=== PATIENT | female | born 1935 | race Caucasian/White ===

== ENCOUNTER 2017-10-11 10:40 | Observation (INO) | payer OTHER ==
[2017-10-11 11:05] VITALS: BMI 22.6
--- NOTE | 2017-10-11 11:27 | PDOC ---
Attending Attestation - Resident Resident Name: Billy Rivas - ED Attending Attestation I have performed the following: I have examined & evaluated the patient, The case was reviewed & discussed with the resident, I agree w/resident's findings & plan, Exceptions are as noted - HPI HPI: 10/11/17 11:43 82y F hx of dementia, seizures, htn, hl, presents from [facility] with complaint of near syncopal episode. She was ambulating to the restroom with a family member this morning and the custodial staff, saw sh was having difficulty with baklance - fell backwards, and was alitlte less responsive than usual no visible seizures, urinary/bowel incontinence, no focal deficits noted at the time of the currenlty complaining of a mild headache that started this morning bu tis unable to provide me any further details. she denies any cp, sob, cough, leg welling currently. history is limited due to her dementia. GENERAL: The patient is awake, alert, and oriented x 1, Nontoxic - in no acute distress. HEAD: Normocephalic, atraumatic. EYES: extraocular movements intact, sclera anicteric, conjunctiva clear. ENT: Normal voice, Moist mucous membranes. NECK: Normal range of motion, supple LUNGS: Breath sounds equal, clear to auscultation bilaterally. No wheezes, no rhonchi, no rales. HEART: Regular rate and rhythm, ABDOMEN: Soft, nontender, NEUROLOGICAL: No facial assymetry, Normal speech, moving all 4 extremities spontaneeously and symemtrically PSYCH: Normal mood, normal affect. 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 There is normal sinus rhythm with a Rate of 56 T wave inversions in the anterior leads No old EKGs for comparison
[2017-10-11 11:33] LABS: BASO % 0.7 % (0-2.0); HEMATOCRIT 44.4 % (32.4-45.2); HEMOGLOBIN 14.3 GM/dL (10.7-15.3); LYMPH % 15.3 % (8-40); MCH 25.6 pg (25.7-33.7); MCHC 32.2 g/dl (32.0-36.0); MEAN CELL VOLUME 79.6 fl (80-96); MEAN PLT VOLUME 8.3 fl (7.5-11.1); MONO % 4.1 % (3.8-10.2); NEUT % 79.9 % (42.8-82.8); PLATELET COUNT 281 K/MM3 (134-434); RBC 5.58 M/mm3 (3.60-5.2); RDW 14.5 % (11.6-15.6); WHITE BLOOD COUNT 9.9 K/mm3 (4.0-10.0)
[2017-10-11] MEDS ORDERED: KETOROLAC TROMETHAMINE 30 MG/1 ML VIAL IVPUSH ONE (11:59)
[2017-10-11] MEDS ORDERED: ACETAMINOPHEN 325 MG TABLET (FP) PO ONE (12:02)
--- NOTE | 2017-10-11 12:16 | PDOC ---
History of Present Illness - General Chief Complaint: Syncope/Near Syncope Stated Complaint: SYNCOPE,HEADACHE Time Seen by Provider: 10/11/17 10:56 - History of Present Illness Initial Comments: Ms Virgen is an 82yo F serbian speaking [facility] resident at [facility] with PMHx of Dementia, Epilepsy, HTN, HLD. She was brought by EMS for possible syncopal/near-syncopal episode. Patient is a poor historian secondary to dementia. History was obtained by nurses at [facility]. Pt was admitted to [facility] 2 days ago for assistance with home care due to dementia. This AM the patient was in the bathroom and suddenly was unable to maintain postural support and started to fall backwards when the nurse caught her and broke her fall. Her eyes remained open, but she appeared to have a "staring" look on her face. After the episode, she was unable to stand up, and was seemingly more confused than baseline. She then started drooling which prompted EMS call. The patient does not remember this episode. But currently states she has a headache and blurry vision. She denies chest pain, palpitations, SOB, abd pain, back pain. She denies focal weakness. Past History - Past Medical History Allergies/Adverse Reactions: Allergies Allergy/AdvReac Type Severity Reaction Status Date / Time No Known Allergies Allergy Verified 10/11/17 10:55 Home Medications: Ambulatory Orders Atorvastatin Ca [Lipitor] 20 mg PO HS 10/11/17 Cholecalciferol (Vitamin D3) [Vitamin D3] 2 tab PO DAILY 10/11/17 Citalopram Hydrobromide [Celexa -] 10 mg PO DAILY 10/11/17 Donepezil HCl 10 mg PO HS 10/11/17 Loratadine [Claritin] 10 mg PO DAILY PRN 10/11/17 Memantine HCl [Namenda -] 10 mg PO BID 10/11/17 Pantoprazole Sodium 40 mg PO DAILY 10/11/17 Topiramate 50 mg PO DAILY 10/11/17 Verapamil HCl 80 mg PO DAILY 10/11/17 Ammonium Lactate Lotion [Lac-Hydrin 12% Lotion -] 1 applic TP DAILY 10/12/17 Azelastine 0.05% Eye Drops 1 drop OD BID 10/12/17 COPD: No Dementia: Yes (with behavioral) GI Disorders: Yes (gerd,esophagitis) HTN: Yes Hypercholesterolemia: Yes Psychiatric Problems: Yes (depression) Seizures: Yes - Suicide/Smoking/Psychosocial Hx Smoking History: Unknown if ever smoked Information on smoking cessation initiated: No Hx Alcohol Use: No Drug/Substance Use Hx: No Substance Use Type: None *Physical Exam - Vital Signs Last Vital Signs Temp Pulse Resp BP Pulse Ox 98.0 F 59 L 18 133/76 100 10/11/17 10:55 10/11/17 10:55 10/11/17 10:55 10/11/17 10:55 10/11/17 11:12 - Physical Exam Comments: GEN: Awake, alert, oriented to person, place, not oriented to time HEENT: PERRLA, EOMi, No temporal tenderness CV: S1, S2, RRR, no murmur LUNG: CTABL ABD: Soft, NT, ND, normoactive BS MSK: No edema, no erythema NEURO: CN 2-12 grossly intact MSK strength 4/5 symmetric in all extremities No sensation deficits No dysmetria or disdiadochokinesia Gait not observed ED Treatment Course - LABORATORY CBC & Chemistry Diagram: 10/12/17 06:00 10/12/17 06:00 - ADDITIONAL ORDERS Additional order review: Laboratory Results 10/11/17 11:20 Sodium Cancelled Potassium Cancelled Chloride Cancelled Carbon Dioxide Cancelled Anion Gap Cancelled BUN Cancelled Creatinine Cancelled Creat Clearance w eGFR Cancelled Random Glucose Cancelled Calcium Cancelled Total Bilirubin Cancelled AST Cancelled ALT Cancelled Alkaline Phosphatase Cancelled Creatine Kinase Cancelled Troponin I Cancelled Total Protein Cancelled Albumin Cancelled 10/11/17 11:20 RBC 5.58 H MCV 79.6 L MCHC 32.2 RDW 14.5 MPV 8.3 Neutrophils % 79.9 Lymphocytes % 15.3 Monocytes % 4.1 Eosinophils % 0.0 Basophils % 0.7 - RADIOLOGY Radiology Studies Ordered: Category Date Time Status HEAD CT WITHOUT CONTRAST [CT] Stat CT Scan 10/11/17 11:59 Ordered Medical Decision Making - Medical Decision Making 10/11/17 12:20 Ms Virgen is an 82yo F with hx of Dementia, Epilepsy, HLD who was BIBEMS from [facility] due to possible presyncopal/syncopal episode. Pt now has headache, blurry vision. DDx include neurogenic causes such as seizure (due to hx), stroke , vasovagal, intracranial bleed or mass. Cardiogenic causes include arrhythmia, atypical MT. --CBC, CMP --Troponin --EKG shows TWI in anterior leads (no comparison) --Head CT noncon --Tylenol 650mg x1 If workup is negative, likely dispo is obs. PCP at [facility] is Dr Jules Chi. 10/11/17 13:38 Labwork is WNL. Head CT shows no hemorrhage or infarct, scattered calcifications. Will call Dr Jules Chi for observation. *DC/Admit/Observation/Transfer Diagnosis at time of Disposition: Syncope Qualifiers: Syncope type: unspecified Qualified Code(s): R55 - Syncope and collapse - Referrals - Patient Instructions - Post Discharge Activity
[2017-10-11] MEDS ORDERED: ACETAMINOPHEN 325 MG TABLET (FP) ONE (12:19)
[2017-10-11 12:46] LABS: ALBUMIN 4.1 g/dl (3.4-5.0); ANION GAP 8 (8-16); BILIRUBIN,TOTAL 0.8 mg/dL (0.2-1.0); BLOOD UREA NITROGEN 25 mg/dL (7-18); CALCIUM 8.8 mg/dL (8.5-10.1); CHLORIDE 107 mmol/L (98-107); CO2 25 mmol/L (21-32); CREATININE 0.8 mg/dL (0.55-1.02); GLUCOSE,RANDOM 105 mg/dL (74-106); POTASSIUM 4.2 mmol/L (3.5-5.1); SGOT/AST 11 U/L (15-37); SGPT/ALT 21 U/L (12-78); SODIUM 140 mmol/L (136-145)
[2017-10-11 12:49] LABS: ALK PHOS 98 U/L (45-117); TOT PROT 7.3 g/dl (6.4-8.2)
--- NOTE | 2017-10-11 15:13 | EKG ---
Test Reason : Blood Pressure : / mmHG Vent. Rate : 056 BPM Atrial Rate : 056 BPM P-R Int : 148 ms QRS Dur : 086 ms QT Int : 486 ms P-R-T Axes : 030 -09 069 degrees QTc Int : 468 ms SINUS BRADYCARDIA T WAVE ABNORMALITY, CONSIDER ANTERIOR ISCHEMIA ABNORMAL ECG NO PREVIOUS ECGS AVAILABLE Confirmed by MD VIDYA, ADELITA ([id number]) on 10/11/2017 3:12:59 PM Referred By: Confirmed By:ADELITA DASILVA MD
[2017-10-11] MEDS: HEPARIN NA (PORCINE) 5,000 UNITS/ML 1ML VIAL SQ SCH (21:03)
[2017-10-12] MEDS ORDERED: LORATADINE 10 MG TABLET PO PRN (03:59)
[2017-10-12 07:33] LABS: HEMATOCRIT 43.9 % (32.4-45.2); HEMOGLOBIN 14.1 GM/dL (10.7-15.3); MCH 25.6 pg (25.7-33.7); MCHC 32.1 g/dl (32.0-36.0); MEAN CELL VOLUME 79.7 fl (80-96); MEAN PLT VOLUME 8.6 fl (7.5-11.1); PLATELET COUNT 276 K/MM3 (134-434); RBC 5.51 M/mm3 (3.60-5.2); RDW 14.5 % (11.6-15.6); WHITE BLOOD COUNT 7.7 K/mm3 (4.0-10.0)
[2017-10-12 07:56] LABS: CHOLESTEROL 223 mg/dL (50-200); HDL CHOLESTEROL 39 mg/dL (40-60); LDL CHOLESTEROL (ONLY SJRH) 133 mg/dL (5-100); TRIGLYCERIDES 255 mg/dL (35-160)
[2017-10-12 08:06] LABS: ALBUMIN 3.9 g/dl (3.4-5.0); ANION GAP 10 (8-16); CHLORIDE 107 mmol/L (98-107); CO2 25 mmol/L (21-32); GLUCOSE,RANDOM 110 mg/dL (74-106); POTASSIUM 4.1 mmol/L (3.5-5.1); SODIUM 142 mmol/L (136-145)
[2017-10-12 08:20] LABS: ALK PHOS 91 U/L (45-117); BILIRUBIN,TOTAL 0.9 mg/dL (0.2-1.0); BLOOD UREA NITROGEN 30 mg/dL (7-18); CALCIUM 8.8 mg/dL (8.5-10.1); SGOT/AST 14 U/L (15-37); SGPT/ALT 21 U/L (12-78); TOT PROT 7.1 g/dl (6.4-8.2)
[2017-10-12] MEDS ORDERED: PT OWN MED DRAWER 7, Y5N ONE (09:48)
[2017-10-12] MEDS: TOPIRAMATE 25 MG TABLET (FP) PO SCH (09:50)
[2017-10-12] MEDS: MEMANTINE HCL 10 MG TABLET (FP) PO SCH ×2 (09:50→22:10)
[2017-10-12] MEDS: PANTOPRAZOLE 40 MG TABLET (FP) PO SCH (09:50)
[2017-10-12] MEDS: CITALOPRAM HYDROBROMIDE 10 MG TABLET (FP) PO SCH (09:50)
[2017-10-12] MEDS: HEPARIN NA (PORCINE) 5,000 UNITS/ML 1ML VIAL SQ SCH ×2 (09:50→22:10)
[2017-10-12] MEDS: CHOLECALCIFEROL (VITAMIN D3) 1,000 UNIT TABLET (FP) PO SCH (09:50)
[2017-10-12] MEDS: VERAPAMIL HCL 80 MG TABLET PO SCH (09:51)
--- NOTE | 2017-10-12 11:12 | HP ---
Admitting History and Physical - Primary Care Physician PCP: Priscilla Chi - Admission History of Present Illness: 82y F hx of dementia, seizures, htn, hl, presents from [facility] with complaint of near syncopal episode. She was ambulating to the restroom with a family member this morning and the long term staff, saw sh was having difficulty with baklance - fell backwards, and was alitlte less responsive than usual no visible seizures, urinary/bowel incontinence, no focal deficits noted at the time ct head -ve for acute pathology exam was -ve for acute cva in er pt admitted to [facility] for observation. case was discussed with er physician yesterday pt seen today sitting in chair denies pain. gait unsteady poor historian chart reviewed ekg- t wave changes in anterior leads u/s carotid -ve History Source: Medical Record Limitations to Obtaining History: Clinical Condition, Dementia - Past Medical History END MATCHER: Yes: Dementia Cardiovascular: Yes: HTN, Hyperlipdemia - Smoking History Smoking history: Unknown if ever smoked Have you smoked in the past 12 months: No - Alcohol/Substance Use Hx Alcohol Use: No - Social History Usual Living Arrangement: Yes: [facility] Home Medications - Allergies Allergies/Adverse Reactions: Allergies Allergy/AdvReac Type Severity Reaction Status Date / Time No Known Allergies Allergy Verified 10/11/17 10:55 - Home Medications Home Medications: Ambulatory Orders Atorvastatin Ca [Lipitor] 20 mg PO HS 10/11/17 Cholecalciferol (Vitamin D3) [Vitamin D3] 2 tab PO DAILY 10/11/17 Citalopram Hydrobromide [Celexa -] 10 mg PO DAILY 10/11/17 Donepezil HCl 10 mg PO HS 10/11/17 Loratadine [Claritin] 10 mg PO DAILY PRN 10/11/17 Memantine HCl [Namenda -] 10 mg PO BID 10/11/17 Pantoprazole Sodium 40 mg PO DAILY 10/11/17 Topiramate 50 mg PO DAILY 10/11/17 Verapamil HCl 80 mg PO DAILY 10/11/17 Ammonium Lactate Lotion [Lac-Hydrin 12% Lotion -] 1 applic TP DAILY 10/12/17 Azelastine 0.05% Eye Drops 1 drop OD BID 10/12/17 Review of Systems Unable to obtain ROS, reason: poor historian -- see h/p Physical Examination Vital Signs: Vital Signs Temperature 97.9 F 10/12/17 10:00 Pulse Rate 82 10/12/17 10:00 Respiratory Rate 16 10/12/17 10:00 Blood Pressure 126/68 10/12/17 10:00 O2 Sat by Pulse Oximetry (%) 97 10/12/17 10:00 Constitutional: Yes: No Distress, Calm Eyes: Yes: Conjunctiva Clear HENT: Yes: WNL Neck: Yes: Supple, Trachea Midline Cardiovascular: Yes: Regular Rate and Rhythm Respiratory: Yes: CTA Bilaterally Gastrointestinal: Yes: Normal Bowel Sounds, Soft Edema: No Neurological: Yes: Alert, Other (non focal) Labs: CBC, BMP 10/12/17 06:00 10/12/17 06:00 Imaging - Results Chest X-ray: Report Reviewed Cat Scan: Report Reviewed EKG: Report Reviewed Problem List - Problems (1) Syncope Code(s): R55 - SYNCOPE AND COLLAPSE (2) Dementia Code(s): F03.90 - UNSPECIFIED DEMENTIA WITHOUT BEHAVIORAL DISTURBANCE (3) Abnormal EKG Code(s): R94.31 - ABNORMAL ELECTROCARDIOGRAM [ECG] [EKG] (4) Hyperlipidemia Code(s): E78.5 - HYPERLIPIDEMIA, UNSPECIFIED (5) Hypertension Code(s): I10 - ESSENTIAL (PRIMARY) HYPERTENSION Assessment/Plan monitor on tele meds reviewed tests/ labs reviewed neurology consult cardiology consult physical therapy fall precautions will follow discussed with nursing staff
[2017-10-12] MEDS: ATORVASTATIN CA 20 MG TABLET (FP) PO SCH (22:10)
[2017-10-12] MEDS: DONEPEZIL HCL 10 MG TABLET (FP) PO SCH (22:11)
--- NOTE | 2017-10-13 08:35 | CONS ---
DATE OF CONSULTATION: 10/12/2017 CONSULTATION REQUESTED BY: Priscilla Chi M.D. CARDIOLOGY CONSULTATION HISTORY OF PRESENT ILLNESS: History is unobtainable as the patient has dementia and unable to contact a family member at [phone]. The patient is an 82-year-old female with dementia, seizures, history of hypertension, who resides at a [facility] facility and apparently was admitted with a near-syncopal episode. As recorded in the record, she had difficulty balancing. Apparently there was no loss of consciousness, no documentation of seizures or tongue biting. There is no known history of coronary artery disease. No history of chest pain or discomfort recorded. No history of dyspnea, either at rest or with exertion, recorded. The patient apparently had a mild headache, as documented in the emergency room history. PAST MEDICAL HISTORY: As mentioned in the history of present illness. PAST SURGICAL HISTORY: Not available. SOCIAL HISTORY: Not available. FAMILY HISTORY: Not available. ALLERGIES: None reported. MEDICATIONS: 1. Topamax 50 mg p.o. daily. 2. Celexa 10 mg p.o. daily. 3. Heparin 5000 units subcutaneously b.i.d. 4. Verapamil 80 mg p.o. daily. 5. Namenda 10 mg p.o. daily. 6. Atorvastatin 20 mg p.o. daily. 7. Aricept 10 mg p.o. daily. 8. Protonix 40 mg p.o. daily. 9. Claritin 10 mg p.o. daily. 10. Vitamin D3 at 2000 units p.o. daily. REVIEW OF SYSTEMS: Constitutional: No history of chills, fever, night sweats or unintentional weight loss has been documented. HEENT: History of headaches recorded in the emergency room note. No history of diplopia, blurred vision, epistaxis, hoarseness, tinnitus or deafness recorded. Cardiovascular: See history of present illness. Respiratory: No known history of cough, expectoration or hemoptysis. No history of bronchial asthma. Gastrointestinal: No history is available. Neurological: See history of present illness. Endocrine: No history of diabetes or thyroid disorder recorded. PHYSICAL EXAMINATION: General: An 82-year-old female was in no acute distress. No pallor, cyanosis, clubbing or jaundice. Vital Signs: Blood pressure 111/65 mmHg. Pulse 64 beats per minute and regular. Respirations 16 per minute. Temperature 98.2 degrees Fahrenheit. Oxygen saturation on room air was 97%. Neck: Supple. No jugular venous distention. Carotids were 2+; upstrokes were normal. No bruits were heard. No thyromegaly was present. Heart: PMI was in the 5th intercostal space. No heaves or thrills. S1 and S2 were normal. A grade 1/6 to 2/6 ejection systolic murmur heard at the 2nd right intercostal space, ending in early systole. No diastolic murmur or gallops were heard. Lungs: Clear on auscultation. Chest: Normal AP diameter. Expansion grossly appears to be normal. Abdomen: Soft, slightly protuberant and nontender. No hepatosplenomegaly or palpable masses were felt. Bowel sounds were underactive. No bruits were heard. Extremities: No calf tenderness or dependent edema. Femoral pulses were 2+. Dorsalis pedis pulses were 1+ to 2+. Posterior tibial pulses were weak. LABORATORY DATA: 1. October 12, 2017: CBC: WBC count 7700, hemoglobin 14.1 g/dL; microcytic cell indices; platelet count 276,000. 2. Chemistry, October 12, 2017: Sodium 142, potassium 4.1, chloride 107, CO2 of 25 mmol/L, BUN 30, creatinine 1.0 mg/dL. 3. Random glucose 110 mg/dL. 4. Triglycerides 255 mg/dL, total cholesterol 223, LDL cholesterol 133, HDL cholesterol 39. 5. Vitamin B12 of 399 pg/mL. 6. TSH 0.90. ELECTROCARDIOGRAM: Sinus bradycardia, probable interatrial conduction abnormality, left axis deviation, diffuse ST and T-wave abnormalities (especially involving the precordial leads). No previous ECG is available for comparison. RADIOLOGY: X-ray of the chest: No acute chest pathology. There was slight scoliosis with degenerative changes of the spine. IMPRESSION: 1. History of probable balance disorder, etiology to be determined: A. Postural hypotension needs to be excluded. 2. Dementia. 3. Dyslipidemia, type IIb, poorly controlled. 4. History of hypertension. 5. B12 deficiency. 6. Prerenal azotemia, most likely related to dehydration. 7. Systolic murmur, compatible with RECOMMENDATIONS: 1. Check blood pressure supine and standing. 2. Stool guaiacs. 3. Evaluation of B12 deficiency and treatment as necessary. 4. Cautious hydration. 5. Follow up CBC. Thank you for your referral. JUSTYNA CAMPBELL M.D. [id number]
[2017-10-13] MEDS ORDERED: PT OWN MED DRAWER 7, Y5N ONE (10:15)
[2017-10-13] MEDS: VERAPAMIL HCL 80 MG TABLET PO SCH (10:19)
[2017-10-13] MEDS: TOPIRAMATE 25 MG TABLET (FP) PO SCH (10:19)
[2017-10-13] MEDS: PANTOPRAZOLE 40 MG TABLET (FP) PO SCH (10:19)
[2017-10-13] MEDS: CHOLECALCIFEROL (VITAMIN D3) 1,000 UNIT TABLET (FP) PO SCH (10:20)
[2017-10-13] MEDS: CITALOPRAM HYDROBROMIDE 10 MG TABLET (FP) PO SCH (10:20)
[2017-10-13] MEDS: MEMANTINE HCL 10 MG TABLET (FP) PO SCH ×2 (10:20→21:59)
[2017-10-13] MEDS: HEPARIN NA (PORCINE) 5,000 UNITS/ML 1ML VIAL SQ SCH ×2 (10:20→21:59)
--- NOTE | 2017-10-13 12:28 | PN ---
Progress Note (short form) - Note Progress Note: awake/ comfortable no complains sitting in chair denies pain. cardiology consult noted/ appreciated Vital Signs Temp 98.3 F 10/13/17 10:00 Pulse 76 10/13/17 10:00 Resp 18 10/13/17 10:00 BP 108/76 10/13/17 10:00 Pulse Ox 97 10/13/17 07:45 Intake & Output 10/12/17 10/13/17 10/13/17 23:59 11:59 23:59 Intake Total 450 250 Balance 450 250 Intake: IV 10 10/11/2017 10 Oral 440 250 Other: Voiding Method Toilet Toilet # Unmeasured Voids Void 1 Bowel Movement No Active Medications Atorvastatin Calcium (Lipitor -) 20 mg PO HS [facility] Last Admin: 10/12/17 22:10 Dose: 20 mg Cholecalciferol (Vitamin D3 -) 2,000 unit PO DAILY [facility] Last Admin: 10/13/17 10:20 Dose: 2,000 unit Citalopram Hydrobromide (Celexa -) 10 mg PO DAILY [facility] Last Admin: 10/13/17 10:20 Dose: 10 mg Donepezil HCl (Aricept -) 10 mg PO HS [facility] Last Admin: 10/12/17 22:11 Dose: 10 mg Heparin Sodium (Porcine) (Heparin -) 5,000 unit SQ BID [facility] Last Admin: 10/13/17 10:20 Dose: 5,000 unit Loratadine (Claritin -) 10 mg PO DAILY PRN PRN Reason: ALLERGIES Memantine (Namenda -) 10 mg PO BID [facility] Last Admin: 10/13/17 10:20 Dose: 10 mg Pantoprazole Sodium (Protonix -) 40 mg PO DAILY [facility] Last Admin: 10/13/17 10:19 Dose: 40 mg Topiramate (Topamax -) 50 mg PO DAILY [facility] Last Admin: 10/13/17 10:19 Dose: 50 mg Verapamil HCl (Calan -) 80 mg PO DAILY [facility] Last Admin: 10/13/17 10:19 Dose: 80 mg CBC, BMP 10/12/17 06:00 10/12/17 06:00 CMP Sodium 142 mmol/L (136-145) 10/12/17 06:00 Potassium 4.1 mmol/L (3.5-5.1) 10/12/17 06:00 Chloride 107 mmol/L (98-107) 10/12/17 06:00 Carbon Dioxide 25 mmol/L (21-32) 10/12/17 06:00 Anion Gap 10 (8-16) 10/12/17 06:00 BUN 30 mg/dL (7-18) H 10/12/17 06:00 Creatinine 1.0 mg/dL (0.55-1.02) 10/12/17 06:00 Creat Clearance w eGFR 53.35 (>60) 10/12/17 06:00 POC Glucometer 116 UNITS (80-120) 10/13/17 05:55 Random Glucose 110 mg/dL (74-106) H 10/12/17 06:00 Calcium 8.8 mg/dL (8.5-10.1) 10/12/17 06:00 Total Bilirubin 0.9 mg/dL (0.2-1.0) 10/12/17 06:00 AST 14 U/L (15-37) L 10/12/17 06:00 ALT 21 U/L (12-78) 10/12/17 06:00 Alkaline Phosphatase 91 U/L (45-117) 10/12/17 06:00 Creatine Kinase Cancelled 10/11/17 11:20 Troponin I < 0.02 ng/ml (0.00-0.05) 10/12/17 06:00 Total Protein 7.1 g/dl (6.4-8.2) 10/12/17 06:00 Albumin 3.9 g/dl (3.4-5.0) 10/12/17 06:00 Triglycerides 255 mg/dL (35-160) H 10/12/17 06:00 Cholesterol 223 mg/dL (50-200) H 10/12/17 06:00 Total LDL Cholesterol 133 mg/dL (5-100) H 10/12/17 06:00 HDL Cholesterol 39 mg/dL (40-60) L 10/12/17 06:00 Vitamin B12 399 pg/ml (180-914) 10/12/17 06:00 TSH 0.90 uIU/ml (0.358-3.74) 10/12/17 06:00 Physical Examination Constitutional: Yes: No Distress, comfortable Eyes: Yes: Conjunctiva Clear HEENT: Yes: WNL Neck: Yes: Supple, Trachea Midline. no bruie Cardiovascular: Yes: Regular Rate and Rhythm Respiratory: Yes: CTA Bilaterally Gastrointestinal: Yes: Normal Bowel Sounds, Soft Edema: No Neurological: Yes: Alert, Other (non focal) Imaging - Results Chest X-ray: Report Reviewed Cat Scan: Report Reviewed EKG: Report Reviewed Problem List - Problems (1) Syncope Code(s): R55 - SYNCOPE AND COLLAPSE (2) Dementia Code(s): F03.90 - UNSPECIFIED DEMENTIA WITHOUT BEHAVIORAL DISTURBANCE (3) Abnormal EKG Code(s): R94.31 - ABNORMAL ELECTROCARDIOGRAM [ECG] [EKG] (4) Hyperlipidemia Code(s): E78.5 - HYPERLIPIDEMIA, UNSPECIFIED (5) Hypertension Code(s): I10 - ESSENTIAL (PRIMARY) HYPERTENSION Assessment/Plan clinically stable continue present care echo will discuss with cardiology physical therapy neurology consult pending will follow. Problem List - Problems (1) Syncope Code(s): R55 - SYNCOPE AND COLLAPSE Qualifiers: Syncope type: unspecified Qualified Code(s): R55 - Syncope and collapse (2) Dementia Code(s): F03.90 - UNSPECIFIED DEMENTIA WITHOUT BEHAVIORAL DISTURBANCE (3) Abnormal EKG Code(s): R94.31 - ABNORMAL ELECTROCARDIOGRAM [ECG] [EKG] (4) Hyperlipidemia Code(s): E78.5 - HYPERLIPIDEMIA, UNSPECIFIED (5) Hypertension Code(s): I10 - ESSENTIAL (PRIMARY) HYPERTENSION
[2017-10-13] MEDS: DONEPEZIL HCL 10 MG TABLET (FP) PO SCH (21:59)
[2017-10-13] MEDS: ATORVASTATIN CA 20 MG TABLET (FP) PO SCH (21:59)
--- NOTE | 2017-10-14 09:25 | CON.NEURO ---
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 Cardio/Vascular: Yes: HTN, Hyperlipdemia - Alcohol/Substance Use Hx Alcohol Use: No - Smoking History Smoking history: Unknown if ever smoked Have you smoked in the past 12 months: No Home Medications - Allergies Allergies/Adverse Reactions: Allergies Allergy/AdvReac Type Severity Reaction Status Date / Time No Known Allergies Allergy Verified 10/11/17 10:55 - Home Medications Home Medications: Ambulatory Orders Atorvastatin Ca [Lipitor] 20 mg PO HS 10/11/17 Cholecalciferol (Vitamin D3) [Vitamin D3] 2 tab PO DAILY 10/11/17 Citalopram Hydrobromide [Celexa -] 10 mg PO DAILY 10/11/17 Donepezil HCl 10 mg PO HS 10/11/17 Loratadine [Claritin] 10 mg PO DAILY PRN 10/11/17 Memantine HCl [Namenda -] 10 mg PO BID 10/11/17 Pantoprazole Sodium 40 mg PO DAILY 10/11/17 Topiramate 50 mg PO DAILY 10/11/17 Verapamil HCl 80 mg PO DAILY 10/11/17 Ammonium Lactate Lotion [Lac-Hydrin 12% Lotion -] 1 applic TP DAILY 10/12/17 Azelastine 0.05% Eye Drops 1 drop OD BID 10/12/17 Physical Exam-Neuro Vital Signs: Vital Signs Temperature 97.9 F 10/14/17 06:00 Pulse Rate 69 10/14/17 06:00 Respiratory Rate 20 10/14/17 06:00 Blood Pressure 148/79 10/14/17 06:00 O2 Sat by Pulse Oximetry (%) 95 10/13/17 23:00 Labs: CBC, BMP 10/12/17 06:00 10/12/17 06:00 Assessment/Plan cc Episode of fall HPI 82 year old female history of Dementia, Seizure, HTN,HLD. She lives in [facility].She was brought to hospital for feeling dizzy and fall , not clear if she pass out. Patient forget about the incident and she has history of demntia. Apparently , she felt dizzy and felt backward. Her ct head is normal. There is no postural hypotension. Investor Relations Associate is also following. She also have history of B12 deficiency. Episode in [place] was not accompanied by seizure, incontinence or tongue bite. During interview, she was laying comfortably and denies any dizziness or vertigo sensation on moving her head. Past Medical History as above. NKDA SH,FH,ROS reviewed in chart Home Medication Atorvastatin Ca [Lipitor] 20 mg PO HS 10/11/17 Cholecalciferol (Vitamin D3) [Vitamin D3] 2 tab PO DAILY 10/11/17 Citalopram Hydrobromide [Celexa -] 10 mg PO DAILY 10/11/17 Donepezil HCl 10 mg PO HS 10/11/17 Loratadine [Claritin] 10 mg PO DAILY PRN 10/11/17 Memantine HCl [Namenda -] 10 mg PO BID 10/11/17 Pantoprazole Sodium 40 mg PO DAILY 10/11/17 Topiramate 50 mg PO DAILY 10/11/17 Verapamil HCl 80 mg PO DAILY 10/11/17 Ammonium Lactate Lotion [Lac-Hydrin 12% Lotion -] 1 applic TP DAILY 10/12/17 Azelastine 0.05% Eye Drops 1 drop OD BID 10/12/17 Neurological Examination Alert follow command, she knows she is in hospital, could not tell date or details of incident in [place] EOMI, pupils is reactive no face asymmetry Moving all extremity sensation isn ormal ct head is normal Assessment- Episode of fall ? syncope vs presyncope. Clinically unlikely to be Episode of seizures or TIA . Neuro exam is non focal except cognitive dysfunction , CT head was normal. [place]lik[place] Balance difficulty could be multifactorial Plan- Suggest to recheck B12 level, PT - spoke to nurse and advise to check Postural hypotension. - Hydrate , and get up slowly , and fall precautions - No need for MRI of brain or eeg - Continue Topamax for now Thanking you so much Ubaldo Guerra MD
--- NOTE | 2017-10-14 10:04 | DS ---
Physical Examination Vital Signs: Vital Signs Temperature 97.9 F 10/14/17 06:00 Pulse Rate 69 10/14/17 06:00 Respiratory Rate 20 10/14/17 06:00 Blood Pressure 148/79 10/14/17 06:00 O2 Sat by Pulse Oximetry (%) 95 10/13/17 23:00 Findings/Remarks: patient comfortable no complaints Feels good Constitutional: Yes: No Distress, Calm Eyes: Yes: Conjunctiva Clear HENT: Yes: WNL Neck: Yes: WNL Cardiovascular: Yes: Regular Rate and Rhythm Respiratory: Yes: CTA Bilaterally Gastrointestinal: Yes: Normal Bowel Sounds, Soft Edema: No Neurological: Yes: Other (nonfocal) ...Motor Strength: WNL Labs: CBC, BMP 10/12/17 06:00 10/12/17 06:00 Discharge Summary Reason For Visit: SYNCOPE Current Active Problems Abnormal EKG (Acute) Dementia (Acute) Hyperlipidemia (Acute) Hypertension (Acute) Syncope (Acute) Hospital Course: 82y F hx of dementia, seizures, htn, hl, presents from [facility] with complaint of near syncopal episode. She was ambulating to the restroom with a family member this morning and the detention staff, saw sh was having difficulty with baklance - fell backwards, and was alitlte less responsive than usual no visible seizures, urinary/bowel incontinence, no focal deficits noted at the time ct head -ve for acute pathology exam was -ve for acute cva in er [facility]. case was discussed with er physician yesterday pt seen today sitting in chair denies pain. gait unsteady poor historian chart reviewed ekg- t wave changes in anterior leads u/s carotid -ve cardiology and neurology consults taken I discussed the case with them patient Stable Echo done today--- will follow Overall stable for discharge Medications reconciled Will follow in detention discussed with nursing staff Also Discharge time 35 minutes--in documenting examining as well as coordinating care. Condition: Stable - Instructions Referrals: Priscilla Chi MD [Primary Care Provider] - Disposition: [facility] - Home Medications Comprehensive Discharge Medication List: Ambulatory Orders Atorvastatin Ca [Lipitor] 20 mg PO HS 10/11/17 Cholecalciferol (Vitamin D3) [Vitamin D3] 2 tab PO DAILY 10/11/17 Citalopram Hydrobromide [Celexa -] 10 mg PO DAILY 10/11/17 Donepezil HCl 10 mg PO HS 10/11/17 Loratadine [Claritin] 10 mg PO DAILY PRN 10/11/17 Memantine HCl [Namenda -] 10 mg PO BID 10/11/17 Pantoprazole Sodium 40 mg PO DAILY 10/11/17 Topiramate 50 mg PO DAILY 10/11/17 Verapamil HCl 80 mg PO DAILY 10/11/17 Ammonium Lactate Lotion [Lac-Hydrin 12] 1 applic TP DAILY 10/12/17 Azelastine 0.05% Eye Drops 1 drop OD BID 10/12/17 Heparin - 5,000 unit SQ BID vial 10/14/17
[2017-10-14] MEDS: CHOLECALCIFEROL (VITAMIN D3) 1,000 UNIT TABLET (FP) PO SCH (11:14)
[2017-10-14] MEDS: MEMANTINE HCL 10 MG TABLET (FP) PO SCH (11:15)
[2017-10-14] MEDS: HEPARIN NA (PORCINE) 5,000 UNITS/ML 1ML VIAL SQ SCH (11:15)
[2017-10-14] MEDS: CITALOPRAM HYDROBROMIDE 10 MG TABLET (FP) PO SCH (11:15)
[2017-10-14] MEDS: PANTOPRAZOLE 40 MG TABLET (FP) PO SCH (11:15)
[2017-10-14] MEDS ORDERED: PT OWN MED DRAWER 7, Y5N ONE (11:16)
[2017-10-14] MEDS: VERAPAMIL HCL 80 MG TABLET PO SCH (11:17)
[2017-10-14] MEDS: TOPIRAMATE 25 MG TABLET (FP) PO SCH (11:17)
[2017-10-14 14:52] VITALS: BP 125/73; PULSE 72
[2017-10-14 16:37] VITALS: TEMP 98.4
== END 2017-10-14 16:45 ==
LOC: JER 10:40 → JERBED 14:03 → J4S 18:21
PROVIDERS: ADMIT Internal Medicine; ATTEND Internal Medicine
PROC: 3E013GC Introduction of Other Therapeutic Substance into Subcutaneous Tissue, Percutaneous Approach (ICD-10-PCS; principal; 2017-10-11)
DX: R55 Syncope and collapse (principal); I10 Essential (primary) hypertension; E78.5 Hyperlipidemia, unspecified; E53.8 Deficiency of other specified B group vitamins; G40.909 Epilepsy, unspecified, not intractable, without status epilepticus; F03.90 Unspecified dementia, unspecified severity, without behavioral disturbance, psychotic disturbance, mood disturbance, and anxiety; K21.9 Gastro-esophageal reflux disease without esophagitis; R26.81 Unsteadiness on feet; R94.31 Abnormal electrocardiogram [ECG] [EKG]; R79.89 Other specified abnormal findings of blood chemistry; R01.1 Cardiac murmur, unspecified; Z79.01 Long term (current) use of anticoagulants
CPT/HCPCS: 36415; 70450-TC; 71045-TC; 80053; 80061; 82607; 82962; 83721; 84443; 84484; 85025; 85027; 93005; 93010; 93306-TC; 93880-TC; 96372; 97116-GP; 97161-GP; 99285-25; G0378; J1644

== ENCOUNTER 2023-05-05 02:41 | Inpatient (IN) | payer OTHER ==
[2023-05-05 03:35] LABS: BASO % 0.2 % (0-2.0); HEMOGLOBIN 12.6 GM/dL (10.7-15.3); LYMPH % 7.4 % (8-40); MCH 26.2 pg (25.7-33.7); MCHC 33.1 g/dl (32.0-36.0); MEAN CELL VOLUME 79.2 fl (80-96); MEAN PLT VOLUME 8.3 fl (7.5-11.1); NEUT % 87.4 % (42.8-82.8); PLATELET COUNT 260 10^3/uL (134-434); RDW 13.6 % (11.6-15.6)
[2023-05-05 03:41] LABS: INR 0.99 (0.83-1.09); PROTHROMBIN TIME (PATIENT) 11.5 SEC (9.7-13.0)
[2023-05-05 03:44] LABS: ACTIVATED PTT 29.6 SECONDS (25.2-36.5)
[2023-05-05 03:53] LABS: ALBUMIN 3.6 g/dl (3.4-5.0); BLOOD UREA NITROGEN 26.7 mg/dL (7-18); CALCIUM 8.8 mg/dL (8.5-10.1)
[2023-05-05 03:58] LABS: BILIRUBIN,TOTAL 0.4 mg/dL (0.2-1); TOT PROT 6.8 g/dl (6.4-8.2)
[2023-05-05] MEDS ORDERED: ACETAMINOPHEN 1000 MG/100 ML BAG IVPB ONE (05:36)
[2023-05-05] MEDS ORDERED: morphine CARPU-JECT 2 MG/1 ML DISP.SYRIN IVPUSH ONE (05:37)
[2023-05-05] MEDS ORDERED: BACITRACIN ZINC 15 GM TUBE TOPICAL OINTMENT TP ONE (06:51)
[2023-05-05] MEDS ORDERED: BACITRACIN 0.9 GM PACKET ONE (10:25)
[2023-05-05] MEDS ORDERED: ACETAMINOPHEN 325 MG TABLET (FP) PO PRN (10:45)
[2023-05-05] MEDS ORDERED: CEFTRIAXONE 1 GM/50 ML BAG ONE (11:02)
[2023-05-05 11:43] LABS: EPI CELLS 4 /uL (0-25.1); HYALINE CASTS 0 /uL (0-3.1); PH,URINE 7.5 (5.0-8.0); URINE APPEARANCE CLEAR; URINE BACTERIA 5906 /uL (0-1359); URINE BILIRUBIN NEGATIVE (NEGATIVE); URINE COLOR YELLOW; URINE GLUCOSE (UA) NEGATIVE (NEGATIVE); URINE KETONE NEGATIVE (NEGATIVE); URINE LEUK ESTERASE 1+ (NEGATIVE); URINE NITRITE NEGATIVE (NEGATIVE); URINE PROTEIN TRACE (NEGATIVE); URINE RBC 4 /uL (0-23.9); URINE WBC 82 /uL (0-25.8)
[2023-05-05] MEDS ORDERED: VALSARTAN 160 MG TABLET PO SCH (22:00)
[2023-05-05] MEDS ORDERED: SENNOSIDES 8.6MG TABLET (FP) PO SCH (22:00)
[2023-05-05] MEDS ORDERED: LATANOPROST 0.005% OPHTH SOLN 2.5ML BOTTLE OU SCH (22:00)
[2023-05-05] MEDS ORDERED: MIRTAZAPINE 15 MG TABLET (FP) PO SCH (22:00)
[2023-05-05] MEDS: BRIMONIDINE TARTRATE 0.2% OPHTHALMIC 5 ML BOTTLE OU SCH (22:10)
[2023-05-06 10:00] LABS: BASO % 0.5 % (0-2.0); HEMATOCRIT 38.5 % (32.4-45.2); HEMOGLOBIN 12.8 GM/dL (10.7-15.3); LYMPH % 15.4 % (8-40); MCH 26.8 pg (25.7-33.7); MCHC 33.3 g/dl (32.0-36.0); MEAN CELL VOLUME 80.5 fl (80-96); MEAN PLT VOLUME 8.8 fl (7.5-11.1); MONO % 7.5 % (3.8-10.2); NEUT % 76.6 % (42.8-82.8); PLATELET COUNT 280 10^3/uL (134-434); RBC 4.79 M/mm3 (3.60-5.2); RDW 13.5 % (11.6-15.6); WHITE BLOOD COUNT 13.3 K/mm3 (4.0-10.0)
[2023-05-06] MEDS ORDERED: RIVASTIGMINE 9.5 MG/24 HOURS TRANSDERMAL PATCH TD SCH (10:00)
[2023-05-06] MEDS ORDERED: FAMOTIDINE 20 MG TABLET PO SCH (10:00)
[2023-05-06] MEDS ORDERED: VASCEPA PO SCH (10:00)
[2023-05-06] MEDS ORDERED: CEFTRIAXONE 1 GM in DEXTROSE 5%-WATER - 50 ML IVPB SCH (10:00)
[2023-05-06 10:22] LABS: POTASSIUM 4.2 mmol/L (3.5-5.1)
[2023-05-06 10:28] LABS: ALBUMIN 3.8 g/dl (3.4-5.0); BLOOD UREA NITROGEN 28.7 mg/dL (7-18); CALCIUM 9.1 mg/dL (8.5-10.1)
[2023-05-06 10:33] LABS: BILIRUBIN,TOTAL 0.9 mg/dL (0.2-1); TOT PROT 7.3 g/dl (6.4-8.2)
[2023-05-06] MEDS: VERAPAMIL HCL 80 MG TABLET PO SCH ×2 (12:15→13:59)
[2023-05-06] MEDS: BRIMONIDINE TARTRATE 0.2% OPHTHALMIC 5 ML BOTTLE OU SCH ×2 (12:21→22:46)
[2023-05-06] MEDS ORDERED: MIDAZOLAM HCL 2 MG/2 ML SINGLE DOSE VIAL ONE (15:39)
[2023-05-06] MEDS ORDERED: ceFAZolin SODIUM 1 GM VIAL IVPB ONE (16:19)
[2023-05-06] MEDS ORDERED: AMINO ACIDS/PROTEIN HYDROLYS 30 ML LIQUID.PKT PO SCH (17:30)
[2023-05-06] MEDS: LACTATED RINGERS SOLUTION 1,000 ML IV SCH (19:55)
[2023-05-06] MEDS ORDERED: ATORVASTATIN CA 20 MG TABLET (FP) PO SCH (22:00)
[2023-05-06] MEDS: MIRTAZAPINE 15 MG TABLET (FP) PO SCH (22:43)
[2023-05-06] MEDS: SENNOSIDES 8.6MG TABLET (FP) PO SCH (22:43)
[2023-05-06] MEDS: ATORVASTATIN CA 20 MG TABLET (FP) PO SCH (22:43)
[2023-05-06] MEDS: VALSARTAN 160 MG TABLET PO SCH (22:44)
[2023-05-06] MEDS: ACETAMINOPHEN 325 MG TABLET (FP) PO PRN (22:44)
[2023-05-06] MEDS: LATANOPROST 0.005% OPHTH SOLN 2.5ML BOTTLE OU SCH (22:46)
[2023-05-06 23:28] VITALS: RESP 18
[2023-05-07] MEDS: CEFAZOLIN 1 GM in DEXTROSE 5%-WATER - 50 ML IVPB SCH ×3 (02:22→17:17)
[2023-05-07] MEDS: FAMOTIDINE 20 MG TABLET PO SCH (09:48)
[2023-05-07] MEDS: ACETAMINOPHEN 325 MG TABLET (FP) PO PRN (09:48)
[2023-05-07] MEDS: ENOXAPARIN NA (PORCINE) 30 MG/0.3 ML DISP.SYRIN SQ SCH (09:50)
[2023-05-07] MEDS: AMINO ACIDS/PROTEIN HYDROLYS 30 ML LIQUID.PKT PO SCH ×2 (09:50→17:18)
[2023-05-07] MEDS: RIVASTIGMINE 9.5 MG/24 HOURS TRANSDERMAL PATCH TD SCH (09:51)
[2023-05-07] MEDS: BRIMONIDINE TARTRATE 0.2% OPHTHALMIC 5 ML BOTTLE OU SCH ×2 (10:00→23:12)
[2023-05-07] MEDS ORDERED: VERAPAMIL HCL 80 MG TABLET PO SCH (10:00)
[2023-05-07 12:35] LABS: BASO % 0.3 % (0-2.0); HEMATOCRIT 34.1 % (32.4-45.2); HEMOGLOBIN 11.1 GM/dL (10.7-15.3); LYMPH % 13.5 % (8-40); MCHC 32.5 g/dl (32.0-36.0); MEAN CELL VOLUME 80.2 fl (80-96); MEAN PLT VOLUME 9.2 fl (7.5-11.1); MONO % 8.8 % (3.8-10.2); NEUT % 77.4 % (42.8-82.8); PLATELET COUNT 254 10^3/uL (134-434); RBC 4.25 M/mm3 (3.60-5.2); RDW 13.7 % (11.6-15.6); WHITE BLOOD COUNT 12.8 K/mm3 (4.0-10.0)
[2023-05-07 13:32] LABS: POTASSIUM 4.1 mmol/L (3.5-5.1)
[2023-05-07 13:48] LABS: BLOOD UREA NITROGEN 24.2 mg/dL (7-18); CALCIUM 8.7 mg/dL (8.5-10.1); MAGNESIUM 2.3 mg/dL (1.8-2.4)
[2023-05-07 13:51] LABS: CREATININE 0.8 mg/dL (0.55-1.3)
[2023-05-07 13:52] LABS: BILIRUBIN,TOTAL 0.7 mg/dL (0.2-1); TOT PROT 6.1 g/dl (6.4-8.2)
[2023-05-07 15:44] VITALS: BMI 13.2
[2023-05-07] MEDS: LACTATED RINGERS SOLUTION 1,000 ML IV SCH (17:22)
[2023-05-07] MEDS: MIRTAZAPINE 15 MG TABLET (FP) PO SCH (23:07)
[2023-05-07] MEDS: ATORVASTATIN CA 20 MG TABLET (FP) PO SCH (23:11)
[2023-05-07] MEDS: LATANOPROST 0.005% OPHTH SOLN 2.5ML BOTTLE OU SCH (23:12)
[2023-05-07] MEDS: SENNOSIDES 8.6MG TABLET (FP) PO SCH (23:12)
[2023-05-07] MEDS: VALSARTAN 160 MG TABLET PO SCH (23:13)
[2023-05-08] MEDS: LACTATED RINGERS SOLUTION 1,000 ML IV SCH (07:06)
[2023-05-08] MEDS ORDERED: VERAPAMIL HCL 80 MG TABLET PO SCH (07:30)
[2023-05-08] MEDS ORDERED: VALSARTAN 160 MG TABLET PO SCH (07:30)
[2023-05-08] MEDS: ENOXAPARIN NA (PORCINE) 30 MG/0.3 ML DISP.SYRIN SQ SCH (09:49)
[2023-05-08] MEDS: FAMOTIDINE 20 MG TABLET PO SCH (09:49)
[2023-05-08] MEDS: AMINO ACIDS/PROTEIN HYDROLYS 30 ML LIQUID.PKT PO SCH (09:50)
[2023-05-08] MEDS: BRIMONIDINE TARTRATE 0.2% OPHTHALMIC 5 ML BOTTLE OU SCH (09:50)
[2023-05-08] MEDS: RIVASTIGMINE 9.5 MG/24 HOURS TRANSDERMAL PATCH TD SCH (09:51)
[2023-05-08] MEDS ORDERED: CEFUROXIME AXETIL 500 MG TABLET PO SCH (10:30)
[2023-05-08 15:23] VITALS: BP 102/62; PULSE 97; TEMP 98.8
== END 2023-05-08 16:47 | DRG 480 ==
LOC: JER 02:41 → JERBED 03:04 → J8W 18:08 → J5S 05-07 14:50
PROVIDERS: ADMIT Internal Medicine; ATTEND Nurse Practitioner Family
PROC: 0QS706Z Reposition Left Upper Femur with Intramedullary Internal Fixation Device, Open Approach (ICD-10-PCS; principal; 2023-05-06 15:00)
DX: S72.142A Displaced intertrochanteric fracture of left femur, initial encounter for closed fracture (principal); E43 Unspecified severe protein-calorie malnutrition; G93.41 Metabolic encephalopathy; N39.0 Urinary tract infection, site not specified; Z68.1 Body mass index [BMI] 19.9 or less, adult; I10 Essential (primary) hypertension; F03.90 Unspecified dementia, unspecified severity, without behavioral disturbance, psychotic disturbance, mood disturbance, and anxiety; E78.5 Hyperlipidemia, unspecified; W19.XXXA Unspecified fall, initial encounter; Y93.89 Activity, other specified; Y92.129 Unspecified place in nursing home as the place of occurrence of the external cause; Y99.8 Other external cause status
CPT/HCPCS: 0241U-QW; 36415; 70450-TC; 71045-TC-FY; 72125-TC; 72170-TC-FY; 73502-TC-LT-FY; 73552-TC-LT-FY; 73700-TC-RT; 76000-TC-FY; 80053; 81003; 83735; 84484; 85025; 85610; 85730; 86850; 86900; 86901; 87086; 87186; 93005; 93010; 94760; 97116-GP; 97161-GP; 99285-25; C1713

== ENCOUNTER 2024-11-06 17:29 | Inpatient (IN) | payer OTHER ==
[2024-11-06 18:18] LABS: HEMATOCRIT 46.6 % (32.4-45.2); HEMOGLOBIN 14.3 GM/dL (10.7-15.3); MCHC 30.7 g/dl (32.0-36.0); MEAN CELL VOLUME 81.5 fl (80-96); MEAN PLT VOLUME 9.1 fl (7.5-11.1); PLATELET COUNT 470 10^3/uL (134-434); RBC 5.72 M/mm3 (3.60-5.2); RDW 16.6 % (11.6-15.6); WHITE BLOOD COUNT 13.3 K/mm3 (4.0-10.0)
[2024-11-06] MEDS: SODIUM CHLORIDE 0.9% 500 ML INFUS.BAG IV ONE (18:22)
[2024-11-06 18:24] LABS: VENOUS BASE EXCESS -7.6 mmol/L (-2-2); VENOUS O2 SATURATION 87.5 % (70-80); VENOUS PCO2 39.2 mmHg (38-52); VENOUS PH 7.289 (7.310-7.410)
[2024-11-06 18:28] LABS: ACTIVATED PTT 29.7 SECONDS (25.2-36.5)
[2024-11-06 18:37] LABS: CHLORIDE 122 mmol/L (98-107); POTASSIUM 4.7 mmol/L (3.5-5.1); SODIUM 155 mmol/L (136-145)
[2024-11-06 18:39] LABS: CALCIUM 10.2 mg/dL (8.5-10.1)
[2024-11-06 18:40] LABS: ANION GAP 12 mmol/L (4-13); CO2 21 mmol/L (21-32)
[2024-11-06 18:43] LABS: CREATININE 1.9 mg/dL (0.55-1.3); SGOT/AST 13 U/L (15-37); SGPT/ALT 10 U/L (13-61)
[2024-11-06 18:44] LABS: BILIRUBIN,TOTAL 0.6 mg/dL (0.2-1); TOT PROT 7.4 g/dl (6.4-8.2)
[2024-11-06 18:46] LABS: ALK PHOS 127 U/L (45-117); BLOOD UREA NITROGEN 110.7 mg/dL (7-18); GLUCOSE,RANDOM 842 mg/dL (74-106)
[2024-11-06 19:08] LABS: INR 1.11 (0.83-1.09); PROTHROMBIN TIME (PATIENT) 12.1 SEC (9.7-13.0)
[2024-11-06] MEDS ORDERED: INSULIN REGULAR HUMAN 100 UNITS/ML *VIAL ONE (20:57)
[2024-11-06] MEDS: LACTATED RINGERS SOLUTION 1000 ML INFUS.BAG IV ONE (21:01)
[2024-11-06] MEDS: INSULIN REGULAR HUMAN 100 UNITS/ML *VIAL IVPUSH ONE (21:01)
[2024-11-06 21:58] LABS: EPI CELLS 9 /uL (0-25.1); HYALINE CASTS 1 /uL (0-3.1); PH,URINE 5.5 (5.0-8.0); URINE APPEARANCE CLEAR; URINE BACTERIA 35 /uL (0-1359); URINE BILIRUBIN NEGATIVE (NEGATIVE); URINE COLOR YELLOW; URINE GLUCOSE (UA) 3+ (NEGATIVE); URINE KETONE TRACE (NEGATIVE); URINE LEUK ESTERASE TRACE (NEGATIVE); URINE NITRITE NEGATIVE (NEGATIVE); URINE PROTEIN 1+ (NEGATIVE); URINE WBC 474 /uL (0-25.8)
[2024-11-06] MEDS ORDERED: LORazepam 2 MG/ML SDV VIAL IVPUSH PRN (22:37)
[2024-11-06 22:38] LABS: YEAST PRESENT (NEGATIVE)
[2024-11-06] MEDS ORDERED: morphine SULFATE 4 MG/ML VIAL IVPUSH PRN (22:38)
[2024-11-06] MEDS ORDERED: SCOPOLAMINE HYDROBROMIDE 1 PATCH PATCH.TD72 ONE (23:48)
[2024-11-06] MEDS: SCOPOLAMINE HYDROBROMIDE 1 PATCH PATCH.TD72 TD SCH (23:53)
[2024-11-07 08:28] VITALS: BMI 19.1
[2024-11-07 09:53] VITALS: RESP 18
[2024-11-07] MEDS: SODIUM CHLORIDE 1,000 ML IV SCH (09:53)
[2024-11-07] MEDS: MINERAL OIL/PET HY-PHL TOPICAL OINTMENT 454 GM JAR TP SCH (09:56)
[2024-11-07] MEDS: TOBRAMYCIN 0.3% OPHTH SOLN 5 ML BOTTLE OU SCH (11:05)
[2024-11-08] MEDS: ACETAMINOPHEN 325 MG SUPP.RECT RC PRN (11:38)
[2024-11-09 03:05] VITALS: BP 98/67; PULSE 122; TEMP 98.6
== END 2024-11-09 04:43 | disposition expired | DRG 871 ==
LOC: JER 17:29 → JERBED 20:57 → J8W 11-07 01:04
PROVIDERS: ADMIT Internal Medicine; ATTEND Nurse Practitioner Family
DX: A41.9 Sepsis, unspecified organism (principal); E11.10 Type 2 diabetes mellitus with ketoacidosis without coma; J18.9 Pneumonia, unspecified organism; E87.0 Hyperosmolality and hypernatremia; N17.9 Acute kidney failure, unspecified; N39.0 Urinary tract infection, site not specified; E78.5 Hyperlipidemia, unspecified; I10 Essential (primary) hypertension; G30.9 Alzheimer's disease, unspecified; F02.80 Dementia in other diseases classified elsewhere, unspecified severity, without behavioral disturbance, psychotic disturbance, mood disturbance, and anxiety; R65.20 Severe sepsis without septic shock
CPT/HCPCS: 0241U-QW; 36415; 71045-TC-FY; 76775-TC; 80053; 81003; 82010; 82803; 82962; 83605; 84484; 85025; 85610; 85730; 86850; 86900; 86901; 87040; 87086; 93005; 93010; 99291